=== PATIENT | male | born 1975 | race Hispanic/Latino ===

== ENCOUNTER 2020-12-07 20:26 | Emergency (ER) | payer BC, OTHER ==
[2020-12-07] MEDS ORDERED: Acetaminophen 500 MG TAB ONE (21:43)
[2020-12-07] MEDS ORDERED: Ibuprofen 400 MG TAB ONE (22:03)
== END 2020-12-07 23:09 | disposition home or self-care (01) ==
LOC: CSHERS 20:26
DX: R10.9 Unspecified abdominal pain (principal)
CPT/HCPCS: 99284